=== PATIENT | female | born 1950 | race Caucasian/White ===

== ENCOUNTER 2023-05-03 08:40 | Emergency (ER) | payer OTHER ==
[~2023-05-03] VITALS: Ht 162.6 cm; Wt 61.2 kg
[2023-05-03 09:14] VITALS: BP 132/74; TEMP 98.4
[2023-05-03] MEDS ORDERED: TDAP [DIPH/PERTUSSIS/TET] 0.5 ML VIAL IM ONE ×2 (09:30→10:03)
[2023-05-03 10:26] VITALS: O2SAT 98
== END 2023-05-03 10:27 | disposition home or self-care (01) ==
LOC: ER 08:43
DX: S61.212A Laceration without foreign body of right middle finger without damage to nail, initial encounter (principal); F32.A Depression, unspecified; Z60.2 Problems related to living alone; W26.8XXA Contact with other sharp object(s), not elsewhere classified, initial encounter; Y93.89 Activity, other specified; Y92.89 Other specified places as the place of occurrence of the external cause; Y99.8 Other external cause status
CPT/HCPCS: 90715